=== PATIENT | male | born 1960 | race American Indian/Alaskan Native ===

== ENCOUNTER 2019-04-24 11:33 | Day surgery (SDC) | payer BC, MEDICARE ==
[~2019-04-24 11:33] MED LIST: APRACLONIDINE 1% OPHTH SOLN DROPERETTE ONE; PHENYLEPHRINE 10% OPHTH SOLN 5 ML ONE; TROPICAMIDE 1% OPHTH SOLN 3 ML ONE
[2019-04-24] MEDS ORDERED: TROPICAMIDE 1% OPHTH SOLN 3 ML OD ONE (11:44)
[2019-04-24] MEDS ORDERED: APRACLONIDINE 1% OPHTH SOLN DROPERETTE OD ONE (11:44)
[2019-04-24] MEDS ORDERED: PHENYLEPHRINE 10% OPHTH SOLN 5 ML OD ONE (11:44)
[2019-04-24 12:48] VITALS: BP 177/80
== END 2019-04-24 11:34 | disposition home or self-care (01) ==
LOC: OR 11:33
PROVIDERS: ATTEND Specialist
DX: E11.36 Type 2 diabetes mellitus with diabetic cataract (principal); H26.491 Other secondary cataract, right eye; E78.00 Pure hypercholesterolemia, unspecified; I10 Essential (primary) hypertension; Z72.89 Other problems related to lifestyle; Z98.890 Other specified postprocedural states; Z79.899 Other long term (current) drug therapy; Z79.4 Long term (current) use of insulin; Z98.41 Cataract extraction status, right eye; Z98.42 Cataract extraction status, left eye
CPT/HCPCS: 82962

== ENCOUNTER 2021-03-04 09:54 | Outpatient (CLI) | payer BC, MEDICARE ==
--- NOTE | 2021-03-04 11:16 | Magnetic Resonance Report ---
MRI left foot without contrast INDICATION: Infection TECHNIQUE: Axial coronal and sagittal images FINDINGS: There is diffuse soft tissue swelling within and surrounding the second toe MTP joint. Arie ed edema within the second metatarsal shaft and distal second metatarsal head and proximal phalanx wi th some bony destructive change is suggested. Advanced degenerative changes seen within the great toe MTP joint and remaining MTP joints and IP joints. There is bone irregularity within the third fourth fifth MTP joints however no significant edema in this area. There is edema within the third metatars al shaft. The distal aspect and phalanx of the third toes are seen. There is soft tissue swelling aleshia rounding the expected MTP joint. IMPRESSION: 1. 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 Surrounding soft tissue edema and fluid are identified with bony destructive change. There is also bone marrow edema within the third metatarsal shaft. There may be s ome edema surrounding the third metatarsal head which is not well seen. Removal of the phalanx of the distal third toe could represent prior surgery. Infection the third toe cannot be excluded. 2. 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 Signer Name: Cirilo Deras MD Signed: 03/04/2021 11:12 AM Workstation Name: [id number]
== END 2021-03-04 09:55 | disposition home or self-care (01) ==
LOC: MRI 09:54
DX: S91.302D Unspecified open wound, left foot, subsequent encounter (principal); M19.072 Primary osteoarthritis, left ankle and foot; M86.8X7 Other osteomyelitis, ankle and foot; M79.89 Other specified soft tissue disorders; X58.XXXD Exposure to other specified factors, subsequent encounter
CPT/HCPCS: 73721